=== PATIENT | female | born 1995 | race Caucasian/White ===

== ENCOUNTER 2021-06-11 00:06 | Inpatient (IN) | payer MEDICAID, SELFPAY ==
[~2021-06-11] VITALS: Ht 154.9 cm; Wt 115.7 kg
[2021-06-11 00:41] VITALS: BP 101/34
--- NOTE | 2021-06-11 00:45 | NUR ---
PATIENT BACK TO THE LOBBY
[2021-06-11] MEDS ORDERED: NACL 0.9% 1,000 ML IV ONE ×2 (01:10→06:30)
[2021-06-11] MEDS ORDERED: KETOROLAC 30 MG/ML VIAL IVP ONE (01:10)
[2021-06-11 01:56] LABS: HEMATOCRIT 38.1 % (36-48); HEMOGLOBIN 13.3 g/dL (12.0-16.0); MEAN CORPUSCULAR HEMOGLOBIN 32 pg (27-31); MEAN CORPUSCULAR HGB CONC 35 g/dL (33-37); PLATELET COUNT (AUTO) 316 K/uL (140-450); RED BLOOD CELL COUNT(AUTO) 4.24 MIL/uL (4.20-5.40); RED CELL DISTRIBUTION WIDTH 12.9 % (11.6-13.7)
[2021-06-11 01:57] LABS: BASOPHILS % (AUTO) 0.1 % (0.0-2.0); EOSINOPHILS % (AUTO) 0.3 % (0.0-4.0); LYMPHOCYTES # (AUTO) 1.4 K/uL (2.5-16.5); LYMPHOCYTES % (AUTO) 12.7 % (20.5-51.1); MONOCYTES # (AUTO) 0.5 K/uL (0.8-1.0); MONOCYTES % (AUTO) 4.7 % (1.7-9.3); NEUTROPHILS # (AUTO) 9.1 K/uL (1.8-7.7); NEUTROPHILS % (AUTO) 82.2 % (42.2-75.2)
[2021-06-11 01:58] LABS: BASOPHILS # (AUTO) 0.1 K/uL (0.00-0.22)
--- NOTE | 2021-06-11 02:03 | NUR ---
patient placed in chb
[2021-06-11 02:04] LABS: ALBUMIN 3.8 g/dL (3.4-5.0); CARBON DIOXIDE 25.7 mmol/L (21-32); CREATININE 0.7 mg/dL (0.6-1.3); POTASSIUM 3.7 mmol/L (3.5-5.1)
[2021-06-11] MEDS ORDERED: KETOROLAC 30 MG/ML VIAL ONE (02:37)
[2021-06-11] MEDS ORDERED: NACL 0.9% 1,000 ML IV SCH (04:15)
[2021-06-11] MEDS ORDERED: KETOROLAC 30 MG/ML VIAL IVP SCH (04:15)
--- NOTE | 2021-06-11 04:44 | NUR ---
PT MOVED TO BED #1
--- NOTE | 2021-06-11 05:07 | NUR ---
25 Y/O FEMALE BIB SELF, C/O RUQ PAIN X1 DAY. PT STATES THE DIARRHEA STOPPED TODAY AND HER LAST MEAL WAS AROUND 2000 LAST NIGHT BUT SHE STILL HAS N/V; NO BLOOD IN THE VOMIT. SKIN IS PINK/WARM/DRY; AAOX4 WITH EVEN AND STEADY GAIT; LUNGS CLEAR BL; HR EVEN AND REGULAR; PT DENIES ANY FEVER, CP, SOB, OR COUGH AT THIS TIME; PATIENT STATES PAIN OF 5/10 AT THIS TIME; VSS; PATIENT POSITIONED FOR COMFORT; HOB ELEVATED; BEDRAILS UP X1; BED DOWN. ER MD MADE AWARE OF PT STATUS. HX: GALSTONE FOR 5 YEARS [facility] DENIES MEDS.
--- NOTE | 2021-06-11 05:10 | NUR ---
COVID/JACK SWAB COLLECTED AND WALKED TO LAB.
[2021-06-11] MEDS ORDERED: MORPHINE SULFATE 4 MG/ML SYR IVP PRN (06:25)
[2021-06-11] MEDS: NACL 0.9% 1,000 ML IV SCH ×4 (06:25→23:05)
--- NOTE | 2021-06-11 07:23 | NUR ---
GAVE TRANSFER OF CARE REPORT TO MELISSA LO.
--- NOTE | 2021-06-11 07:27 | NUR ---
REPORT RECEIVED FROM WALLY HAGAN FOR CONTINUITY OF CARE.
--- NOTE | 2021-06-11 09:38 | NUR ---
PATIENT AMBULATED TO RESTROOM W/ STEADY GAIT.
--- NOTE | 2021-06-11 09:42 | NUR ---
PATIENT AMBULATED BACK TO BED, RECONNECTED PATIENT TO BEDSIDE MONITOR. PATIENT SAFETY MEASURES PUT IN PLACE. WILL CONTINUE TO MONITOR.
[2021-06-11] MEDS: MORPHINE SULFATE 2 MG/ML SYR IVP PRN (09:46)
[2021-06-11] MEDS ORDERED: LORazepam 2 MG/ML VIAL IM/IVP PRN (10:15)
[2021-06-11] MEDS ORDERED: POTASSIUM CHLORIDE 10 MEQ TABER PO PRN (10:15)
[2021-06-11] MEDS ORDERED: ONDANSETRON 4 MG/2 ML VIAL IM/IVP PRN (10:15)
[2021-06-11] MEDS ORDERED: MAG SULF 2000 MG/WATER PREMIX 50 ML IV PRN (10:15)
[2021-06-11] MEDS ORDERED: ZOLPIDEM 5 MG TAB PO PRN (10:15)
[2021-06-11] MEDS ORDERED: ACETAMINOPHEN 325 MG TAB PO PRN (10:15)
[2021-06-11] MEDS ORDERED: DOCUSATE SODIUM 100 MG GELCAP PO PRN (10:15)
[2021-06-11] MEDS ORDERED: DEXTROSE 50% 50 ML SYR IVP PRN (10:30)
[2021-06-11] MEDS ORDERED: cefTRIAXone 1,000 MG VIAL ONE (10:49)
--- NOTE | 2021-06-11 10:56 | NUR ---
SPOKE WITH KARINE FROM [facility] IN REGARDS TO HIDA SCAN. INFORMED KARINE PATIENT HAS SURGERY SCHEDULED AT 1430 TODAY. PER ANTELMO "HE WOULD NOT BE ABLE TO START THE SCAN UNTIL 1400 DUE TO PATIENT LAST RECEIVING PAIN MEDICATION AT 0940"
--- NOTE | 2021-06-11 11:04 | NUR ---
RT AT PATIENT BEDSIDE
[2021-06-11] MEDS: BLOOD GLUCOSE MONITORING 1 DEV DEV FS SCH ×3 (11:32→21:00)
[2021-06-11] MEDS: INSULIN LISPRO SLIDING SCALE 100 UNITS/ML VIAL SUBQ PRN ×2 (11:39→23:16)
--- NOTE | 2021-06-11 13:04 | NUR ---
PATIENT HAS BEEN SCREENED AND CATEGORIZED MODERATE NUTRITION RISK. PATIENT WILL BE SEEN WITHIN 3-5 DAYS OF ADMISSION. / [address]
[2021-06-11 13:07] LABS: PROTHROMBIN TIME 9.8 secs (10.8-13.4)
[2021-06-11] MEDS ORDERED: SEVOFLURANE 250 ML BTL INH ONE (13:25)
--- NOTE | 2021-06-11 13:44 | NUR ---
Patient appears to be resting comfortably in bed. Vital Signs within normal limits. Respirations even and unlabored. All patient needs met at this time
[2021-06-11] MEDS ORDERED: MIDAZOLAM 2 MG/2 ML VIAL ONE (14:52)
[2021-06-11] MEDS ORDERED: fentaNYL citrate 0.05 MG/ML VIAL ONE (14:52)
[2021-06-11] MEDS ORDERED: SUCCINYLCHOLINE CHLORIDE 200 MG/10 ML VIAL IVP ONE (14:53)
[2021-06-11] MEDS ORDERED: PROPOFOL 200 MG/20 ML VIAL IV ONE (14:53)
[2021-06-11] MEDS ORDERED: ONDANSETRON 4 MG/2 ML VIAL ONE (15:45)
[2021-06-11] MEDS ORDERED: DEXAMETHASONE 4 MG/ML VIAL ONE (15:45)
[2021-06-11] MEDS ORDERED: ROCURONIUM 50 MG/5 ML VIAL IV ONE (15:46)
[2021-06-11] MEDS ORDERED: diphenhydrAMINE 50 MG/ML VIAL IVP PRN (15:50)
[2021-06-11] MEDS ORDERED: ONDANSETRON 4 MG/2 ML VIAL IVP PRN (15:50)
[2021-06-11] MEDS ORDERED: BLOOD GLUCOSE MONITORING 1 DEV DEV FS ONE (15:50)
[2021-06-11] MEDS ORDERED: HYDROmorphone 1 MG/ML AMP IVP PRN (15:50)
[2021-06-11] MEDS ORDERED: MEPERIDINE 50 MG/ML SYR ONE (16:36)
[2021-06-11] MEDS ORDERED: SUGAMMADEX SODIUM 200 MG/2 ML VIAL IV ONE (17:02)
[2021-06-11] MEDS: MEPERIDINE 25 MG/ML SYR IVP PRN ×2 (18:00→18:10)
--- NOTE | 2021-06-11 18:36 | NUR ---
RECEIVED PATIENT FROM OPERATING ROOM DID NOT RECIEVE A REPORT FOR THE PATIENT FROM ER, PATIENT IS AROSABLE BREATHING EVEN UNLABORED, S/P CHOLECYSTECTOMY, VITAL SINS 127/80 HEART RATE 100 BREATHING 16, SAT 95% DENIES ANY PAIN , CALLS LIGHT WITHIN REAVH, ALL SAFETY MEASURES ON PLACE
[2021-06-11 18:40] LABS: CHOL/HDL RATIO 3.4 (1-4.5); THYROID STIMULATING HORMONE 1.09 uIU/mL (0.34-3.74)
--- NOTE | 2021-06-11 19:54 | NUR ---
FULL REPORT GIVEN TO [employer] COOK NURSE
--- NOTE | 2021-06-11 19:55 | NUR ---
RECEIVED REPORT FROM AM NURSE. PATIENT IN BED RESTING. ON ROOM AIR SATING AT 94%. NO S/S OF RESPIRATORY DISTRESS. ALL SAFETY MEASURES ARE IN PLACE. CALL LIGHT WITHIN REACH. WILL CONTINUE TO MONITOR.
--- NOTE | 2021-06-11 20:09 | NUR ---
PER DR. TONG PATIENT IS [facility].
--- NOTE | 2021-06-11 20:22 | NUR ---
bld glucose level was 254. administered 6 units of humalog insulin sq as ordered per sliding scale
[2021-06-12] VITALS: BP 120/73
[2021-06-12] MEDS: NACL 0.9% 1,000 ML IV SCH ×4 (00:10→18:06)
--- NOTE | 2021-06-12 00:20 | NUR ---
PATIENT CLEANED, CHANGED AND REPOSITIONED. ANSWERED CALL LIGHT. ATTENDED TO HER NEEDS.
[2021-06-12 04:00] VITALS: BP 118/78
--- NOTE | 2021-06-12 06:18 | NUR ---
ASSISTED PATIENT TO THE TOILET, VOIDED ONCE.
[2021-06-12 07:15] LABS: BASOPHILS % (AUTO) 0.1 % (0.0-2.0); HEMOGLOBIN 13.3 g/dL (12.0-16.0); LYMPHOCYTES % (AUTO) 13.5 % (20.5-51.1); MEAN CORPUSCULAR HEMOGLOBIN 32 pg (27-31); MEAN CORPUSCULAR HGB CONC 35 g/dL (33-37); MEAN CORPUSCULAR VOLUME 90.8 fL (80-94); MONOCYTES # (AUTO) 0.2 K/uL (0.8-1.0); MONOCYTES % (AUTO) 2.9 % (1.7-9.3); NEUTROPHILS # (AUTO) 6.3 K/uL (1.8-7.7); NEUTROPHILS % (AUTO) 83.5 % (42.2-75.2); PLATELET COUNT (AUTO) 323 K/uL (140-450); RED BLOOD CELL COUNT(AUTO) 4.19 MIL/uL (4.20-5.40); RED CELL DISTRIBUTION WIDTH 13.3 % (11.6-13.7); WHITE BLOOD COUNT (AUTO) 7.5 K/uL (4.8-10.8)
--- NOTE | 2021-06-12 07:40 | NUR ---
RECEIVED REPORT FROM CORRESPONDENCE SPECIALIST NURSE FOR CONTINUITY OF CARE. PATIENT LYING DOWN IN BED SLEEPING, AROUSABLE BY VOICE. NO DISTRESS NOTED. DENIES PAIN. AAOX4, 4 ABD INCISIONS WITH DERMABOND GLUE INTACT. IV SITE INTACT, PATENT, AND INFUSING IVF PER MD ORDERS. REVIEWED PLAN OF CARE WITH PATIENT. VERBALIZED UNDERSTANDING. SAFETY MEASURES IN PLACE, CALL LIGHT WITHIN REACH. WILL CONTINUE TO MONITOR.
[2021-06-12 07:46] LABS: MAGNESIUM 1.9 mg/dL (1.8-2.4); PHOSPHORUS 3.4 mg/dL (2.5-4.9)
[2021-06-12 07:51] LABS: ANION GAP 16.1 (8-16); CARBON DIOXIDE 21.6 mmol/L (21-32); CREATININE 0.8 mg/dL (0.6-1.3); POTASSIUM 3.7 mmol/L (3.5-5.1); TOTAL BILIRUBIN 2.7 mg/dL (0.0-1.0)
[2021-06-12 08:00] VITALS: BP 123/79
--- NOTE | 2021-06-12 08:00 | NUR ---
ENDORSED PATIENT TO AM NURSE FOR CONTINUITY OF CARE. NO ACUTE DISTRESS.
[2021-06-12] MEDS: BLOOD GLUCOSE MONITORING 1 DEV DEV FS SCH ×4 (08:08→20:30)
[2021-06-12 09:07] LABS: ALBUMIN 3.3 g/dL (3.4-5.0)
[2021-06-12] MEDS: MORPHINE SULFATE 2 MG/ML SYR IVP PRN ×3 (09:16→19:00)
--- NOTE | 2021-06-12 09:19 | NUR ---
PATIENT COMPLAINS OF PAIN, MORPHINE GIVEN AT THIS TIME. OTHER SCHEDULED MEDICATIONS DUE GIVEN. WILL CONTINUE TO MONITOR.
[2021-06-12] MEDS: INSULIN LISPRO SLIDING SCALE 100 UNITS/ML VIAL SUBQ PRN ×2 (12:15→16:57)
--- NOTE | 2021-06-12 12:15 | NUR ---
SCHEDULED MEDICATIONS DUE GIVEN. WILL CONTINUE TO MONITOR.
--- NOTE | 2021-06-12 12:23 | NUR ---
PATIENT COMPLAINS OF PAIN, MORPHINE GIVEN AT THIS TIME.
[2021-06-12 16:00] VITALS: BP 131/94
[2021-06-12] MEDS: metFORMIN 850 MG TAB PO SCH (16:56)
--- NOTE | 2021-06-12 16:57 | NUR ---
SCHEDULED MEDICATIONS DUE GIVEN. WILL CONTINUE TO MONITOR.
--- NOTE | 2021-06-12 19:00 | NUR ---
NM TECH ASKING FOR 2 MG MORPHINE TO BE GIVEN. GAVE AT THIS TIME DUE TO PAIN DURING SCAN. WILL CONTINUE TO MONITOR.
--- NOTE | 2021-06-12 19:37 | NUR ---
RECIEVED REPORT FROM KWAN RN - WHILE PT. IS IN THE RADIOLOGY DEPT FOR HD SCAN - PER KWAN HE PUT PT NPO FOR PROCEDURE , BUT WHEN THE PROCEDURE DONE - RESUME CLEAR LIQ DIET ORDERED . - PT GOT METFORMIN /TAB . WILL CHECK BS .
[2021-06-12] MEDS ORDERED: SENNA 8.6 MG TAB PO SCH (21:00)
--- NOTE | 2021-06-12 21:00 | NUR ---
BS 159 - JUST GOT INSULIN SQ AND METFORMIN . WILL RESUME CLEAR LIQ DIET .
--- NOTE | 2021-06-12 22:31 | NUR ---
RELAYED HIDA SCAN RESULT TO DR. ALANIS - WAITING FOR FURTHER ORDERS . Addendum: 06/12/21 at 2250 by Lisa Dowling RN NO TEXTBACK FROM DR. ALANIS . RELAY TO DR. ALANIS THE RESULT OF HIDA SCAN BY DIRECT CALL .- NO FURTHER ORDERS MADE .
[2021-06-13] VITALS: BP 118/79
--- NOTE | 2021-06-13 | NUR ---
ROUNDS , SLEEPING , AWAKEABLE , JAZ COMPLAIN MADE AT THIS TIME , CALL LIGHT WITHIN REACH .
--- NOTE | 2021-06-13 02:00 | NUR ---
SLEEPING CHEST RISE AND FALL EQUALLY . CALL LIGHT WITHIN REACH .
--- NOTE | 2021-06-13 06:00 | NUR ---
ASSIST PT TO GO TO RESTROOM , VOIDED FREELY . BACK TO BED , SURGICAL SITE CHECKED ALL GLUED AND INTACT , BEARABLE PAIN SHE SAID , CALL LIGHT WITHIN REACH .
[2021-06-13] MEDS: BLOOD GLUCOSE MONITORING 1 DEV DEV FS SCH ×3 (06:47→16:35)
--- NOTE | 2021-06-13 07:28 | NUR ---
ENDORSED - PT - STABLE .
--- NOTE | 2021-06-13 07:30 | NUR ---
RECEIVED PT FROM NIGHT RN, PT IS ASLEEP BUT AROUSABLE WHEN CALLED AND TOUCHED, SIDE RAILS UP AND CALL LIGHT WITHIN REACH, IV LINE NOTED ON THE RAC G.20 WITH NS AT 20ML/HR INFUSING,PT HAS ABDOMINAL INCISION, S/P LAPAROSCOPIC CHOLECYSTECTOMY WITH CHOLANGIOGRAM, PT IS ON RA, NO SIGN OF DISTRESS NOTED AND WILL CONTINUE TO MONITOR PT.
[2021-06-13 08:00] VITALS: BP 125/80
[2021-06-13 08:12] LABS: ALBUMIN 3.1 g/dL (3.4-5.0); ANION GAP 16.7 (8-16); CARBON DIOXIDE 22.3 mmol/L (21-32); CREATININE 0.6 mg/dL (0.6-1.3); TOTAL BILIRUBIN 0.7 mg/dL (0.0-1.0)
[2021-06-13] MEDS: CYCLOBENZAPRINE 10 MG TAB PO SCH ×3 (09:50→17:34)
--- NOTE | 2021-06-13 09:50 | NUR ---
PT WAS GIVEN THE SCHEDULED AM MEDICATIONS NOW, AND POTASSIUM 40MEQ FOR POTASSIUM LEVEL OF 3.0, TOLERATED AND WILL CONTINUE TO MONITOR PT.
[2021-06-13] MEDS: metFORMIN 850 MG TAB PO SCH ×3 (09:53→17:34)
[2021-06-13] MEDS ORDERED: POTASSIUM CHLORIDE 10 MEQ TABER PO SCH (10:00)
--- NOTE | 2021-06-13 10:30 | NUR ---
PT WAS ASSISTED OUT OF BED AND AMBULATED TO BATHROOM AND BACK TO BED, PT HAD A BM TODAY.
[2021-06-13] MEDS ORDERED: ACET-9527 PO (12:21)
[2021-06-13] MEDS: INSULIN LISPRO SLIDING SCALE 100 UNITS/ML VIAL SUBQ PRN (13:02)
--- NOTE | 2021-06-13 13:03 | NUR ---
PT WAS GIVEN THE SCHEDULED PM MEDICATIONS, INSULIN 2 UNITS WAS ADMINISTERED ON THE LEFT DELTOID FOR BLOOD GLUCOSE OF 174.
[2021-06-13 16:00] VITALS: BP 100/65
[2021-06-13] MEDS ORDERED: METF-336 PO (17:06)
[2021-06-13] MEDS ORDERED: CYCL-657 PO (17:06)
[2021-06-13] MEDS ORDERED: DOCU-299 PO (17:06)
--- NOTE | 2021-06-13 17:34 | NUR ---
PT WAS GIVEN THE SCHEDULED MEDICATIONS.
[2021-06-13] MEDS: NACL 0.9% 1,000 ML IV SCH (19:50)
--- NOTE | 2021-06-13 19:50 | NUR ---
DISCHARGED PT TO HOME ACCOMPANIED BY SISTER, IV LINE REMOVED, DISCHARGED TEACHINGS AND INSTRUCTIONS GIVEN TO PT AND VERBALIZED UNDERSTANDING.
== END 2021-06-13 19:50 | disposition home or self-care (01) | DRG 263 ==
LOC: MED 00:06 → MMU 06:30 → MTU 14:34
PROC: BF111ZZ Fluoroscopy of Biliary and Pancreatic Ducts using Low Osmolar Contrast (ICD-10-PCS; 2021-06-11)
PROC: 0FT44ZZ Resection of Gallbladder, Percutaneous Endoscopic Approach (ICD-10-PCS; principal; 2021-06-11 14:30)
DX: K80.00 Calculus of gallbladder with acute cholecystitis without obstruction (principal); K76.0 Fatty (change of) liver, not elsewhere classified; E11.65 Type 2 diabetes mellitus with hyperglycemia; Z68.42 Body mass index [BMI] 45.0-49.9, adult; E66.01 Morbid (severe) obesity due to excess calories; Z98.891 History of uterine scar from previous surgery; Z20.822 Contact with and (suspected) exposure to COVID-19
CPT/HCPCS: 36415; 71045; 74150; 76705; 78445; 80053; 81025; 82374; 82948; 83036; 83605; 83690; 83735; 83880; 84100; 84134; 84436; 84443; 85025; 85610; 85730; 86886; 86900; 86901; 87081; 88304; 93005; 96361; 96374; 96376; 99285; A9510; C1887; J0330; J0696; J1100; J1170; J1644; J1885; J2175; J2250; J2270; J2405; J2704; J3010; J3490; J7030; J7060; Q0092; Q9967